=== PATIENT | male | born 1995 | race Caucasian/White ===

== ENCOUNTER 2024-02-17 19:26 | Emergency (ER) | payer OTHER ==
[~2024-02-17] VITALS: Ht 180.3 cm; Wt 106.6 kg
[2024-02-17] MEDS ORDERED: Ondansetron Hydrochloride 4 MG TAB SL ONE (19:55)
[2024-02-17] MEDS ORDERED: Acetaminophen/Oxycodone 5 MG/325 MG TABLET PO ONE (19:55)
[2024-02-17] MEDS ORDERED: Ketorolac Tromethamine 60 MG/2 ML VIAL IM ONE (22:05)
[2024-02-17] MEDS ORDERED: Bacitracin Zinc 14 GM TUBE T ONE (22:05)
[2024-02-17] MEDS ORDERED: NAPROSYN500 MG PO (22:13)
== END 2024-02-17 22:15 | disposition home or self-care (01) ==
LOC: ED 19:26
DX: S00.93XA Contusion of unspecified part of head, initial encounter (principal); S20.212A Contusion of left front wall of thorax, initial encounter; S00.81XA Abrasion of other part of head, initial encounter; S80.811A Abrasion, right lower leg, initial encounter; M25.551 Pain in right hip; Z91.013 Allergy to seafood; V89.2XXA Person injured in unspecified motor-vehicle accident, traffic, initial encounter; Y93.55 Activity, bike riding; Y92.410 Unspecified street and highway as the place of occurrence of the external cause; Y99.8 Other external cause status